=== PATIENT | female | born 1990 | race Hispanic/Latino ===

== ENCOUNTER 2022-10-16 23:21 | Day surgery (SDC) | payer SELFPAY ==
[2022-10-16 23:57] VITALS: BMI 40.0
[2022-10-17] MEDS ORDERED: hydrALAZINE 20 MG/ML VIAL SLOW IVP PRN (00:33)
[2022-10-17] MEDS ORDERED: Acetaminophen 325 MG TAB PO SCH (00:45)
[2022-10-17] MEDS ORDERED: Lactated Ringer's 1,000 ML IV SCH (02:00)
== END 2022-10-17 08:20 | disposition home or self-care (01) ==
LOC: CSHLD/OP 23:21
PROVIDERS: ATTEND Emergency Medicine
DX: O47.1 False labor at or after 37 completed weeks of gestation (principal); O35.8XX0 Maternal care for other (suspected) fetal abnormality and damage, not applicable or unspecified; O99.713 Diseases of the skin and subcutaneous tissue complicating pregnancy, third trimester; L72.9 Follicular cyst of the skin and subcutaneous tissue, unspecified; Z79.82 Long term (current) use of aspirin; Z79.899 Other long term (current) drug therapy; Z3A.37 37 weeks gestation of pregnancy
CPT/HCPCS: 76819; 96360; 99283

== ENCOUNTER 2022-10-19 15:55 | Inpatient (IN) | payer SELFPAY ==
[2022-10-19 18:06] VITALS: BMI 40.6
[2022-10-19] MEDS ORDERED: Lactated Ringer's 1,000 ML IV SCH (18:30)
[2022-10-19] MEDS ORDERED: Acetaminophen 500 MG TAB PO PRN (18:39)
[2022-10-19] MEDS ORDERED: Misoprostol 200 MCG TAB PR PRN (18:39)
[2022-10-19] MEDS ORDERED: Methylergonovine 0.2 MG/ML VIAL IM PRN (18:39)
[2022-10-19] MEDS ORDERED: Promethazine HCl 25 MG/ML VIAL IM PRN (18:39)
[2022-10-19] MEDS ORDERED: hydrALAZINE 20 MG/ML VIAL SLOW IVP PRN (18:39)
[2022-10-19] MEDS ORDERED: Tranexamic Acid 1,000 MG in Sodium Chloride 0.9% 250 ML 250 ML IVPB PRN (18:39)
[2022-10-19] MEDS ORDERED: Diphenoxylate HCl/Atropine Tablet PO PRN (18:39)
[2022-10-19] MEDS ORDERED: Carboprost 250 MCG/ML AMP IM PRN (18:39)
[2022-10-19] MEDS ORDERED: Ondansetron PF 4 MG/2 ML Vial IVP PRN (18:39)
[2022-10-19] MEDS ORDERED: NS w/ Oxytocin 30 units 500 ML IV SCH (18:45)
[2022-10-19 18:56] LABS: Hemoglobin 12.1 g/dL (12.0-15.5); Mean Corpuscular HGB CONC 32.4 g/dL (32.0-36.0); Mean Platelet Volume 12.1 fl (7.4-10.4); Platelet Count 190 10x3/uL (150-450); RBC Distribution Width 15.9 % (11.5-14.5); Red Blood Cell (RBC) Count 4.66 10x6/uL (3.90-5.03); White Blood Cell (WBC) Count 8.3 10x3/uL (3.5-10.5)
[2022-10-19 19:02] LABS: SARS-CoV-2 NAA Rapid Test Not Detected (NotDetected)
[2022-10-19 19:24] LABS: HBSAg Index 0.14 S/CO (0-0.99); Hep B Surf Ag Non-Reactive S/CO (NonReactive); Syphilis Antibody Nonreactive (Nonreactive); Syphilis Antibody Index 0.07 S/CO (<1.00 Non-Reactive)
== END 2022-10-20 10:30 | disposition home or self-care (01) | DRG 833 ==
LOC: CSHLD/OP 15:55 → CSHLD 17:27
PROVIDERS: ADMIT Obstetrics & Gynecology; ATTEND Obstetrics & Gynecology
DX: O36.8330 Maternal care for abnormalities of the fetal heart rate or rhythm, third trimester, not applicable or unspecified (principal); Z20.822 Contact with and (suspected) exposure to COVID-19; Z3A.37 37 weeks gestation of pregnancy; O99.891 Other specified diseases and conditions complicating pregnancy; O22.03 Varicose veins of lower extremity in pregnancy, third trimester; O26.893 Other specified pregnancy related conditions, third trimester; Z79.82 Long term (current) use of aspirin; Z79.899 Other long term (current) drug therapy
CPT/HCPCS: 85027; 86780; 86850; 86900; 86901; 87340; 99285; J2590; J7120; U0002

== ENCOUNTER 2022-10-28 19:09 | Inpatient (IN) | payer MEDICAID, OTHER ==
[2022-10-28 19:32] VITALS: BMI 40.8
[2022-10-28] MEDS ORDERED: Ibuprofen 800 MG TAB PO PRN (20:26)
[2022-10-28] MEDS ORDERED: Ondansetron PF 4 MG/2 ML Vial IVP PRN (20:26)
[2022-10-28] MEDS ORDERED: hydrALAZINE 20 MG/ML VIAL SLOW IVP PRN (20:26)
[2022-10-28] MEDS ORDERED: Lidocaine 1% (PF) 30 ML VIAL SC PRN (20:26)
[2022-10-28] MEDS ORDERED: Promethazine HCl 25 MG/ML VIAL IM PRN (20:26)
[2022-10-28] MEDS ORDERED: NS w/ Oxytocin 30 units 500 ML IV SCH (20:30)
[2022-10-28 20:43] LABS: Hemoglobin 12.1 g/dL (12.0-15.5); Mean Corpuscular HGB CONC 32.9 g/dL (32.0-36.0); Mean Corpuscular Hemoglobin 26.4 pg (27.0-33.0); Mean Corpuscular Volume 80.2 fl (81.6-98.3); Mean Platelet Volume 11.6 fl (7.4-10.4); Platelet Count 182 10x3/uL (150-450); Red Blood Cell (RBC) Count 4.59 10x6/uL (3.90-5.03); White Blood Cell (WBC) Count 8.3 10x3/uL (3.5-10.5)
[2022-10-28 21:48] LABS: HBSAg Index 0.15 S/CO (0-0.99); Hep B Surf Ag Non-Reactive S/CO (NonReactive); Syphilis Antibody Nonreactive (Nonreactive); Syphilis Antibody Index 0.05 S/CO (<1.00 Non-Reactive)
[2022-10-28 22:15] LABS: SARS-CoV-2 NAA Rapid Test Not Detected (NotDetected)
[2022-10-29] MEDS ORDERED: Fentanyl 2 mcg/Bup 0.1% Cadd 100 ML ONE (03:34)
[2022-10-29] MEDS ORDERED: Acetaminophen 325 MG TAB PO PRN (04:16)
[2022-10-29] MEDS ORDERED: Moisturizing Cream (Eucerin) 113 GM JAR TOP PRN (04:16)
[2022-10-29] MEDS ORDERED: diphenhydrAMINE 50 MG/ML VIAL IVP PRN (04:16)
[2022-10-29] MEDS ORDERED: Ondansetron PF 4 MG/2 ML Vial IVP PRN (04:16)
[2022-10-29] MEDS ORDERED: ePHEDrine Sulfate 50 MG/10 ML VIAL SLOW IVP PRN (04:16)
[2022-10-29] MEDS ORDERED: Promethazine HCl 25 MG/ML VIAL IM PRN (04:16)
[2022-10-29] MEDS ORDERED: Naloxone HCl 0.4 mg/ml Vial IVP PRN ×2 (04:16)
[2022-10-29] MEDS ORDERED: Lactated Ringer's 500 ML IV PRN (04:16)
[2022-10-29] MEDS ORDERED: Fentanyl 2 mcg/Bupivacaine 0.1% Cassette 100 ML EPIDURAL SCH (04:30)
[2022-10-29] MEDS ORDERED: Communication Order-Pharmacy FS SCH (04:30)
[2022-10-29] MEDS ORDERED: NS w/ Oxytocin 30 units 500 ML IV SCH (05:00)
[2022-10-29] MEDS ORDERED: hydrALAZINE 20 MG/ML VIAL SLOW IVP PRN (07:21)
[2022-10-29] MEDS ORDERED: diphenhydrAMINE 25 MG CAP PO PRN (07:21)
[2022-10-29] MEDS ORDERED: Bisacodyl 10 MG SUPP PR PRN (07:21)
[2022-10-29] MEDS ORDERED: Milk Of Magnesia 30 ML UDCUP PO PRN (07:21)
[2022-10-29] MEDS ORDERED: Boostrix 0.5 ML (Tdap) VIAL (>/=7 yrs of age) IM ONE (07:21)
[2022-10-29] MEDS: Ferrous Sulfate 325 MG TAB PO SCH ×2 (09:41→15:46)
[2022-10-29] MEDS: Docusate 100 MG CAP PO SCH ×2 (09:41→19:35)
[2022-10-29] MEDS: Ibuprofen 800 MG TAB PO SCH ×2 (14:13→21:02)
[2022-10-30 04:21] LABS: #Eosinphils 0.1 10x3/uL (0.0-0.5); #Monocytes 0.4 10x3/uL (0.0-1.1); #Neutrophils 4.4 10x3/uL (1.5-8.4); %Basophils 0.3 % (0.0-2.0); %Lymphocytes 30.8 % (18.0-47.0); %Neutrophils 60.9 % (40.0-75.0); Hemoglobin 11.1 g/dL (12.0-15.5); Mean Corpuscular HGB CONC 32.6 g/dL (32.0-36.0); Mean Corpuscular Hemoglobin 26.6 pg (27.0-33.0); Mean Corpuscular Volume 81.5 fl (81.6-98.3); Mean Platelet Volume 11.2 fl (7.4-10.4); Platelet Count 174 10x3/uL (150-450); Red Blood Cell (RBC) Count 4.17 10x6/uL (3.90-5.03); White Blood Cell (WBC) Count 7.2 10x3/uL (3.5-10.5)
[2022-10-30] MEDS ORDERED: Zolpidem Tartrate 5 MG TAB PO PRN (04:30)
[2022-10-30] MEDS: Ibuprofen 800 MG TAB PO SCH (05:17)
[2022-10-30] MEDS: Ferrous Sulfate 325 MG TAB PO SCH ×2 (07:29→07:30)
[2022-10-30] MEDS ORDERED: Measles/Mumps/Rubella 10 MCG/0.5 ML VIAL SC ONE (07:44)
[2022-10-30 08:03] VITALS: BP 108/57; TEMP 98
[2022-10-30] MEDS: Docusate 100 MG CAP PO SCH (08:37)
== END 2022-10-30 16:00 | disposition home or self-care (01) | DRG 807 ==
LOC: CSHLD/OP 19:09 → CSHLD 19:48 → CSHPP 10-29 09:11
PROVIDERS: ADMIT Obstetrics & Gynecology; ATTEND Obstetrics & Gynecology
PROC: 10E0XZZ Delivery of Products of Conception, External Approach (ICD-10-PCS; principal; 2022-10-29)
PROC: 0HQ9XZZ Repair Perineum Skin, External Approach (ICD-10-PCS; 2022-10-29)
DX: O42.02 Full-term premature rupture of membranes, onset of labor within 24 hours of rupture (principal); Z37.0 Single live birth; O99.214 Obesity complicating childbirth; Z3A.38 38 weeks gestation of pregnancy; Z20.822 Contact with and (suspected) exposure to COVID-19; E66.9 Obesity, unspecified; O87.4 Varicose veins of lower extremity in the puerperium; I83.90 Asymptomatic varicose veins of unspecified lower extremity; O75.89 Other specified complications of labor and delivery; Z67.40 Type O blood, Rh positive; Z79.899 Other long term (current) drug therapy; Z79.82 Long term (current) use of aspirin; O70.0 First degree perineal laceration during delivery
CPT/HCPCS: 36415; 51702; 85025; 85027; 86780; 86850; 86900; 86901; 87340; 90707; 90715; 99285; J2590; U0002